=== PATIENT | female | born 1960 | race Hispanic/Latino ===

== ENCOUNTER 2023-11-19 00:17 | Inpatient (IN) | payer OTHER, SELFPAY ==
[2023-11-19] MEDS ORDERED: Ondansetron PF 4 MG/2 ML Vial ONE (01:02)
[2023-11-19 01:30] LABS: #Basophils 0.1 10x3/uL (0.0-0.2); #Eosinphils 0.2 10x3/uL (0.0-0.5); #Monocytes 1.7 10x3/uL (0.0-1.1); #Neutrophils 18.8 10x3/uL (1.5-8.4); %Basophils 0.4 % (0.0-2.0); %Eosinophils 0.9 % (0.0-6.0); %Lymphocytes 6.8 % (18.0-47.0); %Monocytes 7.5 % (0.0-10.0); %Neutrophils 83.6 % (40.0-75.0); Hematocrit 42.2 % (34.9-44.5); Hemoglobin 13.3 g/dL (12.0-15.5); Mean Corpuscular HGB CONC 31.5 g/dL (32.0-36.0); Mean Corpuscular Hemoglobin 28.2 pg (27.0-33.0); Mean Corpuscular Volume 89.4 fl (81.6-98.3); Platelet Count 290 10x3/uL (150-450); RBC Distribution Width 13.8 % (11.5-14.5); Red Blood Cell (RBC) Count 4.72 10x6/uL (3.90-5.03); White Blood Cell (WBC) Count 22.5 10x3/uL (3.5-10.5)
[2023-11-19 01:32] LABS: Analyzer IN Cardio CS ER; Base Excess -13.8 mEq/L (-2 - +2); Calcium, Ionized (venous) 1.22 mmol/L (1.16-1.32); Chloride (VBG) 97 mmol/L (98-106); Critical Notified By: Udy, RRT; Hematocrit-VBG 43 % (36.0-47.0); Hemoglobin (Hb) 14.6 g/dL (11.7-16.0); Potassium (VBG) 4.41 mmol/L (3.70-5.30); Puncture Site Other Site; RapidComm Collect By LAB; Sodium 134 mmol/L (133-146); pH (venous) 7.203 (7.32-7.43)
[2023-11-19 01:43] LABS: ALT (SGPT) 8 U/L (8-55); Albumin 3.6 g/dL (3.4-4.8); Anion Gap 26 mmol/L (10-20); BUN (Urea Nitrogen) 45 mg/dL (9.8-20.1); Bilirubin, Total 0.4 mg/dL (0.2-1.2); Calc. Creatinine Clearance 0 mL/min (70-130); Calcium 9.4 mg/dL (7.8-10.44); Carbon Dioxide 10 mmol/L (23-31); Chloride 99 mmol/L (98-107); Estimated GFR 34; Globulin 4.2 g/dL (2.4-3.5); Glucose 397 mg/dL (80-115); Lipase 38 U/L (8-78); Potassium 4.5 mmol/L (3.5-5.1)
[2023-11-19 01:49] LABS: Troponin I 0.057 ng/mL (< 0.028)
[2023-11-19 01:51] LABS: Influenza A by NAA Not Detected (NotDetected); Influenza B by NAA Not Detected (NotDetected); SARS-CoV-2 NAA Rapid Test Not Detected (NotDetected)
[2023-11-19 02:03] LABS: AST (SGOT) 12 U/L (5-34); Alkaline Phosphatase 114 U/L (40-110); Protein, Total 7.8 g/dL (5.8-8.1); Sodium 131 mmol/L (136-145)
[2023-11-19 02:05] LABS: Bilirubin Neg (Negative); Blood, Urine 10 (Negative); Clarity Clear (Clear); Glucose, Urine (Dipstick) >=1000 mg/dL (Negative); Ketone, Urine 150 mg/dL (Negative); Leukocyte Negative (Negative); Nitrite Negative (Negative); Protein, Urine (Dipstick) 30 mg/dl (Neg-Trace); Specific Gravity, Urine 1.015 (1.005-1.030); Urobilinogen Normal mg/dL (Less than 2)
[2023-11-19] MEDS ORDERED: Electrolyte Replacement Protocol IVPB SCH (02:05)
[2023-11-19] MEDS ORDERED: Dextrose 50% Abboject 50 ML SYRINGE SLOW IVP PRN (02:05)
[2023-11-19] MEDS ORDERED: INSULIN REGULAR IN 0.9 % NACL 100 UNITS in Premix 1 BAG IVPB SCH (02:15)
[2023-11-19] MEDS ORDERED: Insulin Regular 300 UNITS/3 ML VIAL ONE (02:38)
[2023-11-19] MEDS ORDERED: Potassium Chloride 20 MEQ (100 mL) BAG ONE (02:38)
[2023-11-19] MEDS ORDERED: cefTRIAXone (ROCEPHIN) 1 GM VIAL ONE (02:38)
[2023-11-19] MEDS ORDERED: NS 0.9% w/ 20 MEQ KCL 1,000 ML ONE (02:44)
[2023-11-19] MEDS ORDERED: INSULIN REGULAR IN 0.9 % NACL 100 UNITS/100 ML BAG ONE (03:00)
[2023-11-19 03:04] LABS: CAUTI Indications for Culture Alt mental st,lethar; RBC/HPF 0-3 HPF (0-3); Squamous Epithelial 0-3 HPF (0-3); WBC/HPF 0-3 HPF (0-3)
[2023-11-19 03:05] LABS: Bacteria/HPF Rare-Few HPF (None Seen); Yeast-Budding 1+ HPF (None Seen)
[2023-11-19 03:06] LABS: Urine Culture Reflex No No
[2023-11-19 03:31] LABS: #Basophils 0.1 10x3/uL (0.0-0.2); #Eosinphils 0.2 10x3/uL (0.0-0.5); #Monocytes 1.8 10x3/uL (0.0-1.1); #Neutrophils 17.3 10x3/uL (1.5-8.4); %Basophils 0.3 % (0.0-2.0); %Eosinophils 0.8 % (0.0-6.0); %Lymphocytes 6.1 % (18.0-47.0); %Monocytes 8.7 % (0.0-10.0); %Neutrophils 83.3 % (40.0-75.0); Hemoglobin 12.6 g/dL (12.0-15.5); Mean Corpuscular HGB CONC 32.3 g/dL (32.0-36.0); Mean Corpuscular Hemoglobin 28.2 pg (27.0-33.0); Mean Corpuscular Volume 87.2 fl (81.6-98.3); Mean Platelet Volume 10.6 fl (7.4-10.4); Platelet Count 243 10x3/uL (150-450); RBC Distribution Width 13.8 % (11.5-14.5); Red Blood Cell (RBC) Count 4.47 10x6/uL (3.90-5.03); White Blood Cell (WBC) Count 20.7 10x3/uL (3.5-10.5)
[2023-11-19 03:37] LABS: Lactic Acid 1.5 mmol/L (0.5-2.2)
[2023-11-19 03:42] LABS: Anion Gap 22 mmol/L (10-20); BUN (Urea Nitrogen) 38 mg/dL (9.8-20.1); Calc. Creatinine Clearance 0 mL/min (70-130); Calcium 8.5 mg/dL (7.8-10.44); Carbon Dioxide 10 mmol/L (23-31); Chloride 104 mmol/L (98-107); Estimated GFR 46; Glucose 286 mg/dL (80-115); Magnesium 2.1 mg/dL (1.6-2.6); Phosphorus 2.5 mg/dL (2.3-4.7); Potassium 3.7 mmol/L (3.5-5.1); Sodium 132 mmol/L (136-145)
[2023-11-19 03:55] LABS: Platelet Adequacy Comment Appears Adequate; RBC Morph Comment Within Normal Limits
[2023-11-19] MEDS: Lactated Ringer's 500 ML IV SCH (04:01)
[2023-11-19] MEDS: Dextrose 5 %-0.45 % NaCl 1,000 ML IV SCH (04:01)
[2023-11-19] MEDS: Lactated Ringer's 1,000 ML IV SCH (04:30)
[2023-11-19] MEDS ORDERED: Potassium Chloride 20 MEQ TAB ONE (05:35)
[2023-11-19] MEDS: Potassium Chloride 20 MEQ TAB PO SCH (05:45)
[2023-11-19] MEDS: D5 1/2 NS w/40 mEq KCL 1,000 ML IV SCH (05:55)
[2023-11-19] MEDS ORDERED: Vancomycin 1 GM in Sodium Chloride 0.9% 250 ML 250 ML IVPB SCH (08:21)
[2023-11-19] MEDS ORDERED: Piperacillin/Tazobactam 3.375 GM VIAL ONE (08:34)
[2023-11-19 08:37] LABS: Troponin I 0.049 ng/mL (< 0.028)
[2023-11-19] MEDS: Carvedilol 6.25 MG TAB PO SCH (08:44)
[2023-11-19] MEDS: Piperacillin/Tazobactam 3.375 GM in Sodium Chloride 0.9% 100 ML IVPB SCH ×2 (08:45→12:13)
[2023-11-19 08:50] LABS: Anion Gap 18 mmol/L (10-20); BUN (Urea Nitrogen) 31 mg/dL (9.8-20.1); Calc. Creatinine Clearance 40 mL/min (70-130); Carbon Dioxide 15 mmol/L (23-31); Chloride 108 mmol/L (98-107); Estimated GFR 52; Glucose 177 mg/dL (80-115); Phosphorus 1.9 mg/dL (2.3-4.7); Potassium 3.7 mmol/L (3.5-5.1); Sodium 137 mmol/L (136-145)
[2023-11-19] MEDS ORDERED: Glucagon 1 MG/ML KIT IM PRN (09:05)
[2023-11-19] MEDS ORDERED: Acetaminophen 650 MG Suppository PR PRN (09:05)
[2023-11-19] MEDS ORDERED: diphenhydrAMINE 50 MG/ML VIAL IVP PRN (09:05)
[2023-11-19] MEDS ORDERED: Sodium Chloride 0.65% Nasal 44 ML BOT EA NARE PRN (09:05)
[2023-11-19] MEDS ORDERED: Artificial Tear Sol 15 ML BOT EA EYE PRN (09:05)
[2023-11-19] MEDS ORDERED: Dextrose 5% in Water 1,000 ML IV PRN (09:05)
[2023-11-19] MEDS ORDERED: Moisturizing Cream (Eucerin) 113 GM JAR TOP PRN (09:05)
[2023-11-19] MEDS ORDERED: Iopamidol 300 61% 100 ML VIAL FS ONE (10:29)
[2023-11-19] MEDS: Vancomycin 1 GM in Sodium Chloride 0.9% 250 ML 250 ML IVPB SCH (10:57)
[2023-11-19] MEDS: Aspirin 81 mg Enteric Coated Tablet PO SCH (10:58)
[2023-11-19] MEDS: Ondansetron PF 4 MG/2 ML Vial IVP PRN (10:58)
[2023-11-19] MEDS: Lantus 1000 UNITS/10 ML VIAL SC SCH (10:58)
[2023-11-19] MEDS: Famotidine/PF 20 mg/2ml Vial SLOW IVP SCH (10:58)
[2023-11-19 11:42] LABS: Anion Gap 13 mmol/L (10-20); BUN (Urea Nitrogen) 25 mg/dL (9.8-20.1); Calc. Creatinine Clearance 45 mL/min (70-130); Calcium 8.5 mg/dL (7.8-10.44); Carbon Dioxide 19 mmol/L (23-31); Chloride 108 mmol/L (98-107); Estimated GFR 56; Glucose 184 mg/dL (80-115); Phosphorus 1.6 mg/dL (2.3-4.7); Potassium 3.9 mmol/L (3.5-5.1); Sodium 136 mmol/L (136-145)
[2023-11-19] MEDS: Potassium Phosphate 15 MMOL in Sodium Chloride 0.9% 250 ML 250 ML IVPB SCH (12:13)
[2023-11-19 13:02] LABS: Hemoglobin A1c 9.6 % (4.0-6.0)
[2023-11-19 16:30] LABS: Anion Gap 16 mmol/L (10-20); BUN (Urea Nitrogen) 18 mg/dL (9.8-20.1); Calc. Creatinine Clearance 46 mL/min (70-130); Calcium 8.2 mg/dL (7.8-10.44); Carbon Dioxide 14 mmol/L (23-31); Chloride 109 mmol/L (98-107); Estimated GFR 57; Glucose 208 mg/dL (80-115); Potassium 4.5 mmol/L (3.5-5.1); Sodium 134 mmol/L (136-145)
[2023-11-19] MEDS: HumaLOG 300 UNITS/3 ML VIAL SC PRN (16:52)
[2023-11-19 19:59] LABS: Anion Gap 12 mmol/L (10-20); BUN (Urea Nitrogen) 15 mg/dL (9.8-20.1); Calc. Creatinine Clearance 53 mL/min (70-130); Calcium 7.9 mg/dL (7.8-10.44); Carbon Dioxide 16 mmol/L (23-31); Chloride 110 mmol/L (98-107); Estimated GFR 68; Glucose 217 mg/dL (80-115); Potassium 4.4 mmol/L (3.5-5.1); Sodium 134 mmol/L (136-145)
[2023-11-19] MEDS: Enoxaparin 40 MG (0.4 mL) SYRINGE SC SCH (20:32)
[2023-11-19] MEDS: Atorvastatin Calcium 40 MG TAB PO SCH (20:33)
[2023-11-20 04:34] LABS: ALT (SGPT) 8 U/L (8-55); AST (SGOT) 12 U/L (5-34); Albumin 2.6 g/dL (3.4-4.8); Alkaline Phosphatase 80 U/L (40-110); Anion Gap 12 mmol/L (10-20); BUN (Urea Nitrogen) 11 mg/dL (9.8-20.1); Bilirubin, Direct 0.2 mg/dL (0.1-0.3); Bilirubin, Total 0.4 mg/dL (0.2-1.2); Calc. Creatinine Clearance 59 mL/min (70-130); Calcium 7.9 mg/dL (7.8-10.44); Carbon Dioxide 16 mmol/L (23-31); Chloride 108 mmol/L (98-107); Estimated GFR 78; Glucose 208 mg/dL (80-115); Potassium 4.1 mmol/L (3.5-5.1); Protein, Total 5.6 g/dL (5.8-8.1); Sodium 132 mmol/L (136-145)
[2023-11-20] MEDS: FLU VACC QS2023-24(6MOS UP)/PF 60 MCG/0.5 ML SYRINGE IM ONE (08:09)
[2023-11-20] MEDS: Famotidine/PF 20 mg/2ml Vial SLOW IVP SCH (08:10)
[2023-11-20] MEDS: Lantus 1000 UNITS/10 ML VIAL SC SCH (08:13)
[2023-11-20 11:06] LABS: Hematocrit 31.2 % (34.9-44.5); Hemoglobin 10.2 g/dL (12.0-15.5); Mean Corpuscular HGB CONC 32.7 g/dL (32.0-36.0); Mean Corpuscular Hemoglobin 28.8 pg (27.0-33.0); Mean Corpuscular Volume 88.1 fl (81.6-98.3); Mean Platelet Volume 9.9 fl (7.4-10.4); Platelet Count 192 10x3/uL (150-450); RBC Distribution Width 14.3 % (11.5-14.5); Red Blood Cell (RBC) Count 3.54 10x6/uL (3.90-5.03); White Blood Cell (WBC) Count 12.6 10x3/uL (3.5-10.5)
[2023-11-20 11:07] LABS: MDiff Complete? YES
[2023-11-20] MEDS: Vancomycin HCl 750 MG in Sodium Chloride 0.9% 250 ML 250 ML IVPB SCH (12:07)
[2023-11-20 12:11] LABS: Lymphocytes 12 % (21-51); Monocytes 8 % (0-10); Myelocyte 1 % (0-0)
[2023-11-20 12:12] LABS: Band 11 % (5-11); Neutrophil 68 % (42-75)
[2023-11-20 12:22] LABS: Platelet Adequacy Comment Appears Adequate; RBC Morph Comment Within Normal Limits
[2023-11-20] MEDS: Sodium Chloride 0.9% 500 ML IV SCH (15:23)
[2023-11-21 04:27] LABS: Hematocrit 33.3 % (34.9-44.5); Hemoglobin 10.8 g/dL (12.0-15.5); Mean Corpuscular HGB CONC 32.4 g/dL (32.0-36.0); Mean Corpuscular Hemoglobin 28.6 pg (27.0-33.0); Mean Corpuscular Volume 88.1 fl (81.6-98.3); Mean Platelet Volume 9.9 fl (7.4-10.4); Platelet Count 224 10x3/uL (150-450); RBC Distribution Width 14.8 % (11.5-14.5); Red Blood Cell (RBC) Count 3.78 10x6/uL (3.90-5.03); White Blood Cell (WBC) Count 14.3 10x3/uL (3.5-10.5)
[2023-11-21 04:28] LABS: MDiff Complete? YES
[2023-11-21 04:37] LABS: ALT (SGPT) 12 U/L (8-55); AST (SGOT) 19 U/L (5-34); Albumin 2.6 g/dL (3.4-4.8); Alkaline Phosphatase 83 U/L (40-110); Anion Gap 15 mmol/L (10-20); BUN (Urea Nitrogen) 10 mg/dL (9.8-20.1); Bilirubin, Direct 0.3 mg/dL (0.1-0.3); Bilirubin, Total 0.5 mg/dL (0.2-1.2); Calc. Creatinine Clearance 72 mL/min (70-130); Carbon Dioxide 16 mmol/L (23-31); Chloride 107 mmol/L (98-107); Estimated GFR 97; Glucose 166 mg/dL (80-115); Potassium 3.8 mmol/L (3.5-5.1); Protein, Total 5.7 g/dL (5.8-8.1); Sodium 134 mmol/L (136-145)
[2023-11-21 04:52] LABS: Band 16 % (5-11); Eosinophils 2 % (0-10); Lymphocytes 14 % (21-51); Metamyelocyte 1 % (0-0); Monocytes 8 % (0-10); Neutrophil 59 % (42-75); Platelet Adequacy Comment Appears Adequate; RBC Morph Comment Within Normal Limits
[2023-11-21] MEDS: Sodium Chloride 0.9% 1,000 ML IV SCH (09:44)
[2023-11-21 10:56] LABS: Vancomycin, Trough 5.9 ug/mL
[2023-11-21] MEDS: Vancomycin HCl 750 MG in Sodium Chloride 0.9% 250 ML 250 ML IVPB SCH (11:45)
[2023-11-21] MEDS: Acetaminophen 325 MG TAB PO PRN (12:03)
[2023-11-21] MEDS: Famotidine/PF 20 mg/2ml Vial SLOW IVP SCH (22:19)
[2023-11-22 04:16] LABS: #Basophils 0.1 10x3/uL (0.0-0.2); #Eosinphils 0.1 10x3/uL (0.0-0.5); #Monocytes 0.9 10x3/uL (0.0-1.1); #Neutrophils 13.8 10x3/uL (1.5-8.4); %Basophils 0.4 % (0.0-2.0); %Eosinophils 0.3 % (0.0-6.0); %Lymphocytes 10.7 % (18.0-47.0); %Monocytes 5.5 % (0.0-10.0); %Neutrophils 81.9 % (40.0-75.0); Hematocrit 32.2 % (34.9-44.5); Hemoglobin 10.5 g/dL (12.0-15.5); Mean Corpuscular HGB CONC 32.6 g/dL (32.0-36.0); Mean Corpuscular Hemoglobin 28.7 pg (27.0-33.0); Mean Platelet Volume 9.9 fl (7.4-10.4); Platelet Count 265 10x3/uL (150-450); RBC Distribution Width 14.9 % (11.5-14.5); Red Blood Cell (RBC) Count 3.66 10x6/uL (3.90-5.03); White Blood Cell (WBC) Count 16.8 10x3/uL (3.5-10.5)
[2023-11-22 04:39] LABS: ALT (SGPT) 9 U/L (8-55); AST (SGOT) 13 U/L (5-34); Albumin 2.3 g/dL (3.4-4.8); Alkaline Phosphatase 73 U/L (40-110); Anion Gap 18 mmol/L (10-20); BUN (Urea Nitrogen) 12 mg/dL (9.8-20.1); Bilirubin, Direct 0.3 mg/dL (0.1-0.3); Bilirubin, Total 0.4 mg/dL (0.2-1.2); Calc. Creatinine Clearance 73 mL/min (70-130); Calcium 7.6 mg/dL (7.8-10.44); Carbon Dioxide 11 mmol/L (23-31); Chloride 109 mmol/L (98-107); Estimated GFR 97; Glucose 132 mg/dL (80-115); Potassium 3.5 mmol/L (3.5-5.1); Protein, Total 5.2 g/dL (5.8-8.1); Sodium 134 mmol/L (136-145)
[2023-11-22] MEDS: Potassium Chloride 20 MEQ TAB PO SCH (08:55)
[2023-11-22 14:19] LABS: Potassium 4.6 mmol/L (3.5-5.1)
[2023-11-22] MEDS: Piperacillin/Tazobactam 3.375 GM VIAL ONE ×2 (22:12)
[2023-11-22 22:22] LABS: Vancomycin, Trough 15.3 ug/mL
[2023-11-23 03:52] LABS: #Basophils 0.1 10x3/uL (0.0-0.2); #Monocytes 2.3 10x3/uL (0.0-1.1); #Neutrophils 16.3 10x3/uL (1.5-8.4); %Basophils 0.6 % (0.0-2.0); %Eosinophils 0.2 % (0.0-6.0); %Lymphocytes 13.3 % (18.0-47.0); %Neutrophils 72.2 % (40.0-75.0); Hematocrit 38.7 % (34.9-44.5); Hemoglobin 11.9 g/dL (12.0-15.5); Mean Corpuscular HGB CONC 30.7 g/dL (32.0-36.0); Mean Corpuscular Hemoglobin 28.2 pg (27.0-33.0); Mean Corpuscular Volume 91.7 fl (81.6-98.3); Mean Platelet Volume 9.5 fl (7.4-10.4); Platelet Count 310 10x3/uL (150-450); RBC Distribution Width 15.2 % (11.5-14.5); Red Blood Cell (RBC) Count 4.22 10x6/uL (3.90-5.03); White Blood Cell (WBC) Count 22.6 10x3/uL (3.5-10.5)
[2023-11-23 03:58] LABS: ALT (SGPT) 9 U/L (8-55); AST (SGOT) 12 U/L (5-34); Albumin 2.5 g/dL (3.4-4.8); Alkaline Phosphatase 88 U/L (40-110); BUN (Urea Nitrogen) 13 mg/dL (9.8-20.1); Bilirubin, Direct 0.1 mg/dL (0.1-0.3); Bilirubin, Total 0.3 mg/dL (0.2-1.2); Calc. Creatinine Clearance 53 mL/min (70-130); Calcium 7.5 mg/dL (7.8-10.44); Chloride 110 mmol/L (98-107); Estimated GFR 68; Glucose 164 mg/dL (80-115); Protein, Total 5.7 g/dL (5.8-8.1); Sodium 133 mmol/L (136-145)
[2023-11-23 04:03] LABS: Carbon Dioxide Less than 8 mmol/L (23-31)
[2023-11-23] MEDS: Sodium Bicarb 50 mEq/50 ML VIAL IVP SCH (05:07)
[2023-11-23 07:45] LABS: Troponin I Less than 0.010 ng/mL (< 0.028)
[2023-11-23] MEDS: Nystatin 500,000 UNITS/5 ML UDCUP SSW SCH (13:14)
[2023-11-23] MEDS ORDERED: Iopamidol 300 61% 100 ML VIAL FS ONE (14:26)
[2023-11-23] MEDS: Famotidine/PF 20 mg/2ml Vial SLOW IVP SCH (20:45)
[2023-11-23] MEDS: Linezolid 600 MG in Premix 1 BAG IVPB SCH (20:45)
[2023-11-23] MEDS: HumaLOG 300 UNITS/3 ML VIAL SC PRN (21:27)
[2023-11-24 03:48] LABS: #Basophils 0.1 10x3/uL (0.0-0.2); #Monocytes 1.7 10x3/uL (0.0-1.1); #Neutrophils 13.8 10x3/uL (1.5-8.4); %Basophils 0.5 % (0.0-2.0); %Eosinophils 0.1 % (0.0-6.0); %Lymphocytes 11.5 % (18.0-47.0); %Monocytes 9.4 % (0.0-10.0); %Neutrophils 75.3 % (40.0-75.0); Hemoglobin 11.4 g/dL (12.0-15.5); Mean Corpuscular HGB CONC 30.8 g/dL (32.0-36.0); Mean Corpuscular Hemoglobin 27.9 pg (27.0-33.0); Mean Corpuscular Volume 90.7 fl (81.6-98.3); Mean Platelet Volume 9.2 fl (7.4-10.4); Platelet Count 427 10x3/uL (150-450); RBC Distribution Width 15.2 % (11.5-14.5); Red Blood Cell (RBC) Count 4.08 10x6/uL (3.90-5.03); White Blood Cell (WBC) Count 18.3 10x3/uL (3.5-10.5)
[2023-11-24 04:04] LABS: ALT (SGPT) 8 U/L (8-55); AST (SGOT) 9 U/L (5-34); Albumin 2.5 g/dL (3.4-4.8); Alkaline Phosphatase 80 U/L (40-110); BUN (Urea Nitrogen) 12 mg/dL (9.8-20.1); Bilirubin, Direct 0.1 mg/dL (0.1-0.3); Bilirubin, Total 0.2 mg/dL (0.2-1.2); Calc. Creatinine Clearance 48 mL/min (70-130); Calcium 7.5 mg/dL (7.8-10.44); Chloride 111 mmol/L (98-107); Estimated GFR 60; Glucose 264 mg/dL (80-115); Potassium 4.2 mmol/L (3.5-5.1); Protein, Total 5.4 g/dL (5.8-8.1); Sodium 133 mmol/L (136-145)
[2023-11-24 04:05] LABS: Carbon Dioxide Less than 8 mmol/L (23-31); Critical Call Chemistry @ NOTIFIED NUR.JP14
[2023-11-24] MEDS: Sodium Chloride 0.9% 1,000 ML IV SCH (06:08)
[2023-11-24] MEDS ORDERED: NS 0.9% w/ 20 MEQ KCL 1,000 ML IV PRN ×2 (07:39)
[2023-11-24] MEDS ORDERED: Dextrose 5 %-0.45 % NaCl 1,000 ML IV PRN (07:39)
[2023-11-24] MEDS ORDERED: Sodium Chloride 0.9% 1,000 ML IV PRN ×4 (07:39)
[2023-11-24] MEDS ORDERED: Electrolyte Replacement Protocol 1 EACH IVPB PRN (07:39)
[2023-11-24] MEDS ORDERED: Dextrose 50% Abboject 50 ML SYRINGE SLOW IVP PRN (07:39)
[2023-11-24] MEDS: D5 1/2 NS w/20 mEq KCL 1,000 ML IV PRN (08:14)
[2023-11-24] MEDS: INSULIN REGULAR IN 0.9 % NACL 100 UNITS in Premix 1 BAG IVPB SCH (08:14)
[2023-11-24 08:32] LABS: Anion Gap 18 mmol/L (10-20); BUN (Urea Nitrogen) 11 mg/dL (9.8-20.1); Calc. Creatinine Clearance 45 mL/min (70-130); Calcium 7.8 mg/dL (7.8-10.44); Chloride 112 mmol/L (98-107); Estimated GFR 56; Glucose 242 mg/dL (80-115); Potassium 3.7 mmol/L (3.5-5.1); Sodium 134 mmol/L (136-145)
[2023-11-24 09:52] LABS: Carbon Dioxide 8 mmol/L (23-31); Critical Call Chemistry SJOS.JAB@0948
[2023-11-24 12:26] LABS: Anion Gap 11 mmol/L (10-20); BUN (Urea Nitrogen) 8 mg/dL (9.8-20.1); Calc. Creatinine Clearance 54 mL/min (70-130); Calcium 7.4 mg/dL (7.8-10.44); Carbon Dioxide 12 mmol/L (23-31); Chloride 113 mmol/L (98-107); Estimated GFR 69; Glucose 275 mg/dL (80-115); Potassium 3.5 mmol/L (3.5-5.1); Sodium 132 mmol/L (136-145)
[2023-11-24] MEDS: Potassium Bicarbonate/Cit Ac 20 MEQ TAB PO SCH (13:18)
[2023-11-24] MEDS: Calcium Carbonate 500 MG ChewTAB PO PRN (13:40)
[2023-11-24] MEDS: Potassium Chloride 20 MEQ in Premix 1 BAG IVPB SCH (13:55)
[2023-11-24 15:19] LABS: Troponin I Less than 0.010 ng/mL (< 0.028)
[2023-11-24 15:48] LABS: Anion Gap 13 mmol/L (10-20); BUN (Urea Nitrogen) 7 mg/dL (9.8-20.1); Calc. Creatinine Clearance 47 mL/min (70-130); Carbon Dioxide 10 mmol/L (23-31); Chloride 112 mmol/L (98-107); Estimated GFR 59; Glucose 334 mg/dL (80-115); Potassium 4.2 mmol/L (3.5-5.1); Sodium 131 mmol/L (136-145)
[2023-11-24 21:22] LABS: Anion Gap 8 mmol/L (10-20); BUN (Urea Nitrogen) 4 mg/dL (9.8-20.1); Calc. Creatinine Clearance 64 mL/min (70-130); Calcium 7.4 mg/dL (7.8-10.44); Carbon Dioxide 15 mmol/L (23-31); Chloride 112 mmol/L (98-107); Estimated GFR 85; Glucose 248 mg/dL (80-115); Potassium 3.7 mmol/L (3.5-5.1); Sodium 131 mmol/L (136-145)
[2023-11-25 00:06] LABS: Anion Gap 10 mmol/L (10-20); BUN (Urea Nitrogen) 4 mg/dL (9.8-20.1); Calc. Creatinine Clearance 69 mL/min (70-130); Calcium 7.3 mg/dL (7.8-10.44); Carbon Dioxide 12 mmol/L (23-31); Chloride 112 mmol/L (98-107); Estimated GFR 93; Glucose 207 mg/dL (80-115); Potassium 3.6 mmol/L (3.5-5.1); Sodium 130 mmol/L (136-145)
[2023-11-25] MEDS: Dextrose 10% in Water 250 ML IVPB PRN (01:22)
[2023-11-25 03:19] LABS: #Basophils 0.1 10x3/uL (0.0-0.2); #Eosinphils 0.1 10x3/uL (0.0-0.5); #Monocytes 1.5 10x3/uL (0.0-1.1); #Neutrophils 12.8 10x3/uL (1.5-8.4); %Basophils 0.4 % (0.0-2.0); %Eosinophils 0.6 % (0.0-6.0); %Lymphocytes 9.3 % (18.0-47.0); %Monocytes 9.5 % (0.0-10.0); %Neutrophils 78.8 % (40.0-75.0); Hematocrit 32.6 % (34.9-44.5); Hemoglobin 10.7 g/dL (12.0-15.5); Mean Corpuscular HGB CONC 32.8 g/dL (32.0-36.0); Mean Corpuscular Hemoglobin 28.8 pg (27.0-33.0); Mean Corpuscular Volume 87.6 fl (81.6-98.3); Mean Platelet Volume 9.7 fl (7.4-10.4); Platelet Count 284 10x3/uL (150-450); RBC Distribution Width 14.8 % (11.5-14.5); Red Blood Cell (RBC) Count 3.72 10x6/uL (3.90-5.03); White Blood Cell (WBC) Count 16.2 10x3/uL (3.5-10.5)
[2023-11-25 03:26] LABS: Anion Gap 11 mmol/L (10-20); BUN (Urea Nitrogen) Less than 4 mg/dL (9.8-20.1); Calc. Creatinine Clearance 71 mL/min (70-130); Calcium 7.3 mg/dL (7.8-10.44); Carbon Dioxide 12 mmol/L (23-31); Chloride 112 mmol/L (98-107); Estimated GFR 97; Glucose 229 mg/dL (80-115); Magnesium 1.5 mg/dL (1.6-2.6); Potassium 3.8 mmol/L (3.5-5.1); Sodium 131 mmol/L (136-145)
[2023-11-25 03:28] LABS: Phosphorus Less than 1.0 mg/dL (2.3-4.7)
[2023-11-25] MEDS: Magnesium 2 GM/50 ML(in water) 2 GM in Premix 1 BAG IVPB SCH (04:34)
[2023-11-25] MEDS: PHOS-NAK 1 PKT PACK PO SCH (04:43)
[2023-11-25 05:38] VITALS: BMI 27.4
[2023-11-25 10:01] LABS: Anion Gap 11 mmol/L (10-20); BUN (Urea Nitrogen) Less than 4 mg/dL (9.8-20.1); Calc. Creatinine Clearance 85 mL/min (70-130); Calcium 7.4 mg/dL (7.8-10.44); Carbon Dioxide 12 mmol/L (23-31); Chloride 112 mmol/L (98-107); Estimated GFR 99; Glucose 150 mg/dL (80-115); Potassium 4.1 mmol/L (3.5-5.1); Sodium 131 mmol/L (136-145)
[2023-11-25] MEDS ORDERED: Dextrose 5% in Water 1,000 ML IV PRN (11:54)
[2023-11-25] MEDS ORDERED: Dextrose 50% Abboject 50 ML SYRINGE SLOW IVP PRN (11:54)
[2023-11-25] MEDS ORDERED: Glucagon 1 MG/ML KIT IM PRN (11:54)
[2023-11-25] MEDS: Sodium Chloride 0.9% 1,000 ML IV SCH (12:51)
[2023-11-25] MEDS: HumaLOG 300 UNITS/3 ML VIAL SC PRN (12:53)
[2023-11-25] MEDS: Lantus 1000 UNITS/10 ML VIAL SC SCH (12:53)
[2023-11-25 13:37] LABS: Anion Gap 10 mmol/L (10-20); BUN (Urea Nitrogen) Less than 4 mg/dL (9.8-20.1); Calc. Creatinine Clearance 86 mL/min (70-130); Calcium 7.1 mg/dL (7.8-10.44); Carbon Dioxide 15 mmol/L (23-31); Chloride 110 mmol/L (98-107); Estimated GFR 99; Glucose 283 mg/dL (80-115); Potassium 4.3 mmol/L (3.5-5.1); Sodium 131 mmol/L (136-145)
[2023-11-25 17:53] LABS: Phosphorus 1.3 mg/dL (2.3-4.7); Potassium 3.5 mmol/L (3.5-5.1)
[2023-11-25] MEDS: Potassium Phosphate 22 MMOL in Sodium Chloride 0.9% 250 ML 250 ML IVPB SCH (18:25)
[2023-11-25] MEDS: Famotidine/PF 20 mg/2ml Vial SLOW IVP SCH (21:53)
[2023-11-26 03:45] LABS: #Basophils 0.1 10x3/uL (0.0-0.2); #Monocytes 1.1 10x3/uL (0.0-1.1); #Neutrophils 8.2 10x3/uL (1.5-8.4); %Basophils 0.5 % (0.0-2.0); %Eosinophils 0.3 % (0.0-6.0); %Lymphocytes 14.5 % (18.0-47.0); %Monocytes 9.6 % (0.0-10.0); %Neutrophils 74.1 % (40.0-75.0); Hematocrit 30.8 % (34.9-44.5); Hemoglobin 10.3 g/dL (12.0-15.5); Mean Corpuscular HGB CONC 33.4 g/dL (32.0-36.0); Mean Corpuscular Hemoglobin 28.5 pg (27.0-33.0); Mean Corpuscular Volume 85.1 fl (81.6-98.3); Mean Platelet Volume 9.4 fl (7.4-10.4); Platelet Count 304 10x3/uL (150-450); RBC Distribution Width 14.8 % (11.5-14.5); Red Blood Cell (RBC) Count 3.62 10x6/uL (3.90-5.03)
[2023-11-26 03:51] LABS: Anion Gap 11 mmol/L (10-20); BUN (Urea Nitrogen) Less than 4 mg/dL (9.8-20.1); Calc. Creatinine Clearance 103 mL/min (70-130); Carbon Dioxide 15 mmol/L (23-31); Chloride 112 mmol/L (98-107); Estimated GFR 104; Glucose 142 mg/dL (80-115); Magnesium 1.8 mg/dL (1.6-2.6); Potassium 3.8 mmol/L (3.5-5.1); Sodium 134 mmol/L (136-145)
[2023-11-26 03:54] LABS: Calcium 6.9 mg/dL (7.8-10.44)
[2023-11-26 04:59] LABS: Phosphorus 2.5 mg/dL (2.3-4.7)
[2023-11-26 08:31] VITALS: TEMP 96.8
[2023-11-26] MEDS: Lantus 1000 UNITS/10 ML VIAL SC SCH (08:40)
[2023-11-26 08:41] VITALS: BP 139/61
[2023-11-26] MEDS: Magnesium 2 GM/50 ML(in water) 2 GM in Premix 1 BAG IVPB SCH (08:41)
== END 2023-11-26 12:04 | disposition home or self-care (01) | DRG 871 ==
LOC: CSHERS 00:17 → CSHERHOLD 02:22 → CSHICU 10:04
PROVIDERS: ADMIT Student in an Organized Health Care Education/Training Program; ATTEND Internal Medicine
PROC: 3E03329 Introduction of Other Anti-infective into Peripheral Vein, Percutaneous Approach (ICD-10-PCS; 2023-11-19)
PROC: 02HV33Z Insertion of Infusion Device into Superior Vena Cava, Percutaneous Approach (ICD-10-PCS; principal; 2023-11-25)
DX: A41.9 Sepsis, unspecified organism (principal); E11.10 Type 2 diabetes mellitus with ketoacidosis without coma; N17.9 Acute kidney failure, unspecified; I69.352 Hemiplegia and hemiparesis following cerebral infarction affecting left dominant side; L97.419 Non-pressure chronic ulcer of right heel and midfoot with unspecified severity; R65.20 Severe sepsis without septic shock; I10 Essential (primary) hypertension; E78.5 Hyperlipidemia, unspecified; D72.829 Elevated white blood cell count, unspecified; E86.0 Dehydration; R77.8 Other specified abnormalities of plasma proteins; R19.00 Intra-abdominal and pelvic swelling, mass and lump, unspecified site; E11.621 Type 2 diabetes mellitus with foot ulcer; Z79.899 Other long term (current) drug therapy; Z93.6 Other artificial openings of urinary tract status; Z79.82 Long term (current) use of aspirin; Z79.84 Long term (current) use of oral hypoglycemic drugs; Z11.52 Encounter for screening for COVID-19
CPT/HCPCS: 36415; 36416; 36569; 51702; 71045; 74177; 74230; 76856; 80048; 80053; 80076; 80202; 81001; 82010; 82040; 82805; 83036; 83605; 83690; 83735; 84100; 84145; 84484; 85025; 86304; 87040; 93005; 93010; 96361; 96365; 96374; 96375; 97139; C1751; J0696; J1650; J1815; J2020; J2405; J2543; J3370; J3475; J3480; J3490; J7030; J7042; J7050; J7120; Q9967; S0028